=== PATIENT | female | born 1955 | race Caucasian/White ===

== ENCOUNTER → 2016-09-03 | Outpatient (CLI) | payer MEDICARE | LOC: NM 09:12 | DX: R10.9 Unspecified abdominal pain (principal); R11.0 Nausea | CPT/HCPCS: 78264; A9541 ==

== ENCOUNTER → 2020-12-16 | Outpatient (CLI) | payer MEDICARE | LOC: MRI 14:00 | DX: D69.6 Thrombocytopenia, unspecified (principal) | CPT/HCPCS: 74183; A9577 ==